=== PATIENT | male | born 1975 | race Caucasian/White ===

== ENCOUNTER 2016-09-07 18:10 | Emergency (ER) | payer SELFPAY ==
[~2016-09-07] VITALS: Ht 188 cm; Wt 90.0 kg
[~2016-09-07 18:10] MED LIST: CITA20 PO; GABA800T PO; LAMI25TA3 PO
[2016-09-07 18:12] VITALS: BP 120/71; PULSE 87; RESP 14; TEMP 97.9; O2SAT 97
== END 2016-09-07 21:24 | disposition left against medical advice (07) ==
LOC: NED 18:10
DX: R68.89 Other general symptoms and signs (principal)
CPT/HCPCS: 99281

== ENCOUNTER 2017-05-22 12:06 | Emergency (ER) | payer SELFPAY ==
[2017-05-22 12:09] VITALS: BP 128/76; PULSE 102; RESP 18; TEMP 98.3; O2SAT 97
--- NOTE | 2017-05-22 12:56 | PD ---
HPI Chief Complaint: Back/ Neck Pain or Injury Time Seen by Provider: 12:35 Travel History International Travel<30 days: No Contact w/Intl Traveler<30days: No Traveled to known affect area: No History of Present Illness HPI 41-year-old male presents to the department complaining of low back pain and sciatica on the left since this weekend after working in the wood shop. Patient states that he does have a herniated disc L5 through S2 back in 2004 but has had minimal issue since then. Patient states that his pain started in his lower back that has radiated to the outer left thigh. He denies any inciting events specifically. He states his pain is moderate and increases with movement and decreases with rest. Patient denies trauma, loss of bowel or bladder function, saddle anesthesia, weakness. Patient says he was working today and cannot stand it any longer so decided come here. PFSH Past Medical History Bipolar Disorder: Yes Anxiety: Yes Depression: Yes Diminished Hearing: No Psychiatric: Yes Immunizations Current: Yes Tetanus Vaccination: Unknown Past Surgical History Surgical History: No Previous Surgery Social History Alcohol Use: No Tobacco Use: Yes Substance Use: Yes (USED HEROIN IN THE PAST) Allergies-Medications (Allergen,Severity, Reaction): Coded Allergies: No Known Allergies (Unverified , 03/14/15) Reported Meds & Prescriptions Reported Meds & Active Scripts Active Ibuprofen 800 Mg Tab 800 Mg PO Q8H PRN 5 Days Medrol Dosepak (Methylprednisolone) 4 Mg Dspk 4 Mg PO DIRECTED Per Pharmacist direction Robaxin (Methocarbamol) 500 Mg Tab 500 Mg PO TID 3 Days Review of Systems Except as stated in HPI: all other systems reviewed are Neg Physical Exam Narrative GENERAL: Well-developed well-nourished in mild distress SKIN: Focused skin assessment warm/dry. HEAD: Atraumatic. Normocephalic. EYES: Pupils equal and round. No scleral icterus. No injection or drainage. ENT: No nasal bleeding or discharge. Mucous membranes pink and moist. NECK: Trachea midline. No JVD. MUSCULOSKELETAL: No obvious deformities. No clubbing. No cyanosis. No edema. BACK: No CVA tenderness. No rash. No point tenderness on palpation of the spine. TTP paraspinous area lumbar region. Neurovascularly intact NEUROLOGICAL: Awake and alert. No obvious cranial nerve deficits. Motor grossly within normal limits. Normal speech. PSYCHIATRIC: Appropriate mood and affect; insight and judgment normal. Data Data Last Documented VS Vital Signs Date Time Temp Pulse Resp B/P (MAP) Pulse Ox O2 Delivery O2 Flow Rate FiO2 05/22/17 13:13 05/22/17 12:09 98.3 102 18 97 Orders Orders Methylprednisolone So Succ Inj (Solumedr (05/22/17 13:00) Ketorolac Inj (Toradol Inj) (05/22/17 13:00) Acetamin-Hydrocod 325-5 Mg ([place] 5-325 (05/22/17 13:00) Ed Discharge Order (05/22/17 12:59) MDM Medical Decision Making Medical Screen Exam Complete: Yes Emergency Medical Condition: Yes Differential Diagnosis Lumbar Lumbago versus muscle strain versus contusion versus fracture Narrative Course 41-year-old male presents to the department complaining of low back pain and sciatica on the left since this weekend after working in the [employer]. Patient states that he does have a herniated disc L5 through S2 back in 2004 but has had minimal issue since then. Patient states that his pain started in his lower back that has radiated to the outer left thigh. He denies any inciting events specifically. He states his pain is moderate and increases with movement and decreases with rest. Patient denies trauma, loss of bowel or bladder function, saddle anesthesia, weakness. Patient says he was working today and cannot stand it any longer so decided come here. He states his pain is moderate and increases with movement and decreases with rest. Vital signs stable Physical exam- consistent with muscle spasms and sciatica, neurovascularly intact. No red flag symptoms. Site Medrol, Toradol administered in the ED. Patient will be discharged with ibuprofen, Medrol Dosepak, and Robaxin. Advised patient to follow up with his primary care physician. If symptoms persist or worsen return to the emergency department Diagnosis Primary Impression: Lumbago with sciatica Qualified Codes: M54.42 - Lumbago with sciatica, left side Referrals: [facility] Additional Instructions: Perform light stretches of the lower back and legs, and alternate heat and ice packs. If you develop increased pain, weakness, fever, chills, or bowel or bladder issues, return to the ED for further treatment and evaluation. Follow up with your primary care physician in 2-3 days. Use ibuprofen and methocarbamol sparingly for your discomfort. Use caution these medications as they may make you feel drowsy. Do not operate heavy machinery with these medications. Scripts Ibuprofen (Ibuprofen) 800 Mg Tab 800 MG PO Q8H Y for pain for 5 Days, #15 TAB 0 Refills Prov: Antonio Mejia MD 05/22/17 Methylprednisolone Dosepak (Medrol Dosepak) 4 Mg Dspk 4 MG PO DIRECTED, #1 DSPK 0 Refills Per Pharmacist direction Prov: Antonio Mejia MD 05/22/17 Methocarbamol (Robaxin) 500 Mg Tab 500 MG PO TID for Muscle Spasm for 3 Days, TAB 0 Refills Prov: Antonio Mejia MD 05/22/17 Disposition: 01 DISCHARGE HOME Condition: Stable Sadie Lanodn May 22, 2017 12:56
[2017-05-22] MEDS ORDERED: IBUP1TAB7 PO (12:58)
[2017-05-22] MEDS ORDERED: MEDR4PAK PO (12:58)
[2017-05-22] MEDS ORDERED: ROBA500T PO (12:58)
[2017-05-22] MEDS ORDERED: KETOROLAC TROMETHAMINE 60 MG/2 ML (IM) VIAL IM ONE (13:00)
[2017-05-22] MEDS ORDERED: methylPREDNISolone SOD SUCC 125 MG/2 ML VIAL IM ONE (13:00)
[2017-05-22] MEDS ORDERED: ACETAMINOPHEN/HYDROcodone 325 MG/5 MG TAB PO ONE (13:00)
== END 2017-05-22 13:14 | disposition home or self-care (01) ==
LOC: NEPK 12:06
DX: M54.42 Lumbago with sciatica, left side (principal); F31.9 Bipolar disorder, unspecified; F41.9 Anxiety disorder, unspecified; Z72.0 Tobacco use; Z79.899 Other long term (current) drug therapy
CPT/HCPCS: 96372; 99284; J1885; J2930